=== PATIENT | male | born 1950 | race African-American/Black ===

== ENCOUNTER 2018-12-15 18:03 | Inpatient (IN) | payer SELFPAY ==
[~2018-12-15] VITALS: Ht 162.6 cm; Wt 58.1 kg
[2018-12-15] MEDS ORDERED: SODIUM CHLORIDE 0.9% 1,000 ML IV ONE (19:20)
[2018-12-15 19:28] LABS: BASOPHILS % 0.5 % (0.0-2.0); EOSINOPHILS % 0.3 % (0.0-5.0); HEMATOCRIT. 32.2 % (42.0-52.0); HEMOGLOBIN. 10.9 g/dL (14.0-18.0); LYMPHOCYTES % 11.7 % (20.0-50.0); MEAN CORPUSCULAR HEMOGLOBIN 34.3 pg (28.0-32.0); MEAN CORPUSCULAR VOLUME 101.7 fL (80.0-94.0); MEAN PLATELET VOLUME 7.9 fl (7.4-10.4); MONOCYTES % 6.6 % (2.0-8.0); NEUTROPHILS % 80.9 % (40.0-76.0); PLATELET 190 x1000/uL (130-400); RED BLOOD CELL COUNT 3.17 mill/uL (4.7-6.1); RED CELL DISTRIBUTION WIDTH 13.4 % (11.6-14.6)
[2018-12-15 19:34] LABS: CHLORIDE 103 mEq/L (98-107)
[2018-12-15 19:36] LABS: PARTIAL THROMBOPLASTIN TIME 28.1 sec (23.4-31.0); PROTHROMBIN TIME 10.2 sec (9.6-11.0)
[2018-12-15 19:38] LABS: ETHANOL BLOOD < 10 mg/dL
[2018-12-15 20:09] LABS: *AMPHETAMINES SCREEN URINE NEGATIVE (NEGATIVE); *BARBITURATES SCREEN URINE NEGATIVE (NEGATIVE); *BENZODIAZEPINES SCREEN URINE NEGATIVE (NEGATIVE); *COCAINE SCREEN URINE NEGATIVE (NEGATIVE); METHADONE URINE SCREEN NEGATIVE (NEGATIVE); OPIATES URINE SCREEN NEGATIVE (NEGATIVE)
[2018-12-15 20:10] LABS: CANNABINOID URINE SCREEN NEGATIVE (NEGATIVE); PHENCYCLIDINE URINE SCREEN NEGATIVE (NEGATIVE)
[2018-12-15] MEDS ORDERED: ASPIRIN 325MG EC TABLET PO ONE (20:15)
[2018-12-15] MEDS ORDERED: CEFTRIAXONE 1 G PREMIX 50 ML IV ONE (21:15)
[2018-12-15 21:23] LABS: CLARITY URINE CLEAR (CLEAR); COLOR URINE YELLOW (YELLOW); KETONES URINE NEGATIVE (NEGATIVE); LEUKOCYTE ESTERASE URINE NEGATIVE (NEGATIVE); NITRITE URINE NEGATIVE (NEGATIVE); OCCULT BLOOD URINE 1+ (NEGATIVE); PROTEIN URINE 1+ (NEGATIVE); SPECIFIC GRAVITY URINE 1.013 (1.005-1.030)
[2018-12-15] MEDS ORDERED: NITROGLYCERIN 0.4MG TABLET SL SL PRN (21:30)
[2018-12-15] MEDS ORDERED: DOCUSATE SODIUM 100MG CAPSULE PO PRN (21:30)
[2018-12-15] MEDS ORDERED: IPRATROPIUM/ALBUTEROL 0.5-3(2.5)MG/3ML NEB INH PRN (21:30)
[2018-12-15] MEDS ORDERED: MAGNESIUM/ALUMINUM HYDROXIDE/SIMETHICONE 30ML UDC PO PRN (21:30)
[2018-12-15] MEDS ORDERED: ONDANSETRON HCL 4MG/2ML INJ IV PRN (21:30)
[2018-12-15] MEDS ORDERED: CEFTRIAXONE 1 G PREMIX 50 ML IV SCH (21:30)
[2018-12-15] MEDS ORDERED: GUAIFENESIN 200MG/10ML SUGAR FREE UDC PO PRN (21:30)
[2018-12-15] MEDS ORDERED: ACETAMINOPHEN 325MG TABLET PO PRN (21:30)
[2018-12-15] MEDS ORDERED: CLONIDINE 0.1MG TABLET PO PRN (21:30)
[2018-12-15] MEDS ORDERED: ZOLPIDEM TARTRATE 5MG TABLET PO PRN (21:30)
[2018-12-15 21:50] LABS: T4 FREE 1.15 ng/dL (0.76-1.46)
[2018-12-15 22:04] LABS: FOLIC ACID (FOLATE) SERUM 16.6 ng/mL (>5.38)
[2018-12-16] VITALS (7 sets, daily range): BP systolic 138–172; BP diastolic 57–80
[2018-12-16] MEDS ORDERED: MVI, ADULT NO.1 10 ML, FOLIC ACID 1 MG, THIAMINE HCL 100 MG in SODIUM CHLORIDE 0.9% 1,0... IV NR ×4 (02:00)
[2018-12-16] MEDS ORDERED: LEVOFLOXACIN 500MG PREMIX 100 ML IV NR (06:00)
[2018-12-16] MEDS: ASCORBIC ACID 500 MG TABLET PO SCH ×2 (09:54→21:33)
[2018-12-16] MEDS: AMLODIPINE 10MG TABLET PO SCH (09:55)
[2018-12-16] MEDS: ZINC SULFATE 220 MG ( 50 ) CAPSULE PO SCH (09:55)
[2018-12-16] MEDS: ASPIRIN 325MG EC TABLET PO SCH (09:55)
[2018-12-16] MEDS: FAMOTIDINE 20MG TABLET PO SCH (09:55)
[2018-12-16] MEDS: ENOXAPARIN 30MG/0.3ML SYR SUBCUT SCH (09:56)
[2018-12-16] MEDS: HALOPERIDOL LACTATE 5MG/ML VIAL IM PRN ×2 (11:19→16:14)
[2018-12-16] MEDS ORDERED: CEFTRIAXONE 1 G PREMIX 50 ML IV SCH (22:00)
[2018-12-17] VITALS: BP 128/63
[2018-12-17 04:00] VITALS: BP 121/82
[2018-12-17] MEDS ORDERED: CYANOCOBALAMIN 1000MCG TABLET PO SCH (07:15)
[2018-12-17 07:22] LABS: CHLORIDE 102 mEq/L (98-107)
[2018-12-17 07:55] LABS: BASOPHILS % 0.8 % (0.0-2.0); EOSINOPHILS % 0.6 % (0.0-5.0); HEMATOCRIT. 35.1 % (42.0-52.0); HEMOGLOBIN. 11.7 g/dL (14.0-18.0); LYMPHOCYTES % 16.9 % (20.0-50.0); MEAN CORPUSCULAR HEMOGLOBIN 34.1 pg (28.0-32.0); MEAN CORPUSCULAR VOLUME 102.5 fL (80.0-94.0); MEAN PLATELET VOLUME 8.9 fl (7.4-10.4); MONOCYTES % 7.5 % (2.0-8.0); NEUTROPHILS % 74.2 % (40.0-76.0); PLATELET 205 x1000/uL (130-400); RED BLOOD CELL COUNT 3.42 mill/uL (4.7-6.1); RED CELL DISTRIBUTION WIDTH 13.6 % (11.6-14.6)
[2018-12-17 08:00] VITALS: BP 138/78
[2018-12-17] MEDS ORDERED: LEVOFLOXACIN 250MG PREMIX 50 ML IV SCH (08:00)
[2018-12-17] MEDS: ZINC SULFATE 220 MG ( 50 ) CAPSULE PO SCH (08:59)
[2018-12-17] MEDS: ASCORBIC ACID 500 MG TABLET PO SCH (08:59)
[2018-12-17] MEDS: FAMOTIDINE 20MG TABLET PO SCH (08:59)
[2018-12-17] MEDS: ASPIRIN 325MG EC TABLET PO SCH (08:59)
[2018-12-17] MEDS ORDERED: MULTIVITAMINS,THER W-MINERALS TABLET PO SCH (09:00)
[2018-12-17] MEDS ORDERED: FOLIC ACID 1MG TABLET PO SCH (09:00)
[2018-12-17] MEDS ORDERED: THIAMINE HCL 100MG TABLET PO SCH (09:00)
[2018-12-17] MEDS: AMLODIPINE 10MG TABLET PO SCH (09:01)
[2018-12-17] MEDS: ENOXAPARIN 30MG/0.3ML SYR SUBCUT SCH (09:03)
[2018-12-17] MEDS: HALOPERIDOL LACTATE 5MG/ML VIAL IM PRN (09:05)
[2018-12-17 12:00] VITALS: BP 166/87
[2018-12-17 19:28] VITALS: BP 128/54
[2018-12-18] MEDS ORDERED: ENOXAPARIN 40MG/0.4ML SYR SUBCUT SCH (09:00)
== END 2018-12-17 20:30 | disposition home or self-care (01) | DRG 469 ==
LOC: ER 18:03 → 5WST 21:12 → ENRESERV 21:30
PROVIDERS: ADMIT Internal Medicine; ATTEND Internal Medicine
DX: N17.9 Acute kidney failure, unspecified (principal); G92 Toxic encephalopathy; D64.9 Anemia, unspecified; Z86.73 Personal history of transient ischemic attack (TIA), and cerebral infarction without residual deficits; F10.20 Alcohol dependence, uncomplicated
CPT/HCPCS: 36415; 71045; 76770; 80061; 80305; 80320; 82607; 82746; 83036; 83540; 83550; 83880; 84439; 84443; 84484; 93005; 93306; 93970; 96361; 96365; 99285; J0696; J1630; J1650; J1956; J3411; J3490; J7030; J7050; G0480